=== PATIENT | male | born 1995 | race Caucasian/White ===

== ENCOUNTER 2025-08-01 12:31 | Outpatient (CLI) | payer OTHER, SELFPAY ==
--- NOTE | ~2025-08-01 | XR_ITS ---
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 Findings: No acute fracture or malalignment. Mild sclerosis of the sacroiliac joints, no bridging osteophyte formation or erosions Soft tissues unremarkable. Impression: No acute fracture or malalignment. Reviewed, dictated and finalized at location P. 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
--- NOTE | ~2025-08-01 | XR_ITS ---
EXAMINATION: XR wrist RT 2V, XR hand LT 2V, XR hand RT 2V, XR wrist LT 2V DATE: 08/01/2025 13:12 INDICATION: Multiple joint pain TECHNIQUE: 1. Posteroanterior and lateral views of the left wrist were obtained. 2. Dorsal palmar and lateral views of the left hand were obtained. 3. Posteroanterior and lateral views of the right wrist were obtained. 4. Dorsal palmar and lateral views of the right hand were obtained. COMPARISON: None. FINDINGS: Left hand and wrist: Alignment of the left hand and wrist is normal. No fracture identified. Joint spaces are normal. No erosions to suggest an inflammatory arthritis. Soft tissues are unremarkable. Right hand and wrist: Alignment of the right hand and wrist is normal. No fracture identified. Joint spaces are normal. No erosions to suggest an inflammatory arthritis. Soft tissues are unremarkable. IMPRESSION: 1. Negative bilateral hand and wrist radiographs. Reviewed, dictated and finalized at location A. 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 Negative bilateral hand and wrist radiographs. IMPRESSION: 1. Negative bilateral hand and wrist radiographs. IMPRESSION: 1. Negative bilateral hand and wrist radiographs.
== END 2025-08-01 12:32 | disposition home or self-care (01) ==
PROVIDERS: PCP Internal Medicine; Visit Provider Internal Medicine
DX: M25.50 Pain in unspecified joint (principal)
CPT/HCPCS: 72202; 73100; 73120